=== PATIENT | male | born 2005 | race Caucasian/White ===

== ENCOUNTER 2023-09-10 02:52 | Emergency (ER) | payer SELFPAY ==
[~2023-09-10] VITALS: Ht 180.3 cm; Wt 61.5 kg
[2023-09-10 03:40] VITALS: TEMP 98.1; O2SAT 99
[2023-09-10] MEDS ORDERED: IBUPROFEN 800MG TABLET PO ONE (04:00)
[2023-09-10] MEDS ORDERED: IBUPROFEN 400MG TABLET PO NR (04:15)
[2023-09-10 05:24] VITALS: BP 135/77; PULSE 68; RESP 16
[2023-09-10] MEDS ORDERED: CEPH500C2 MT (05:45)
== END 2023-09-10 06:43 | disposition home or self-care (01) ==
LOC: ER 02:52
DX: S62.635A Displaced fracture of distal phalanx of left ring finger, initial encounter for closed fracture (principal); X58.XXXA Exposure to other specified factors, initial encounter; Y93.89 Activity, other specified; Y92.89 Other specified places as the place of occurrence of the external cause; Y99.8 Other external cause status
CPT/HCPCS: 73140; 99283